=== PATIENT | female | born 1940 | race Caucasian/White ===

== ENCOUNTER 2016-10-24 07:47 | Day surgery (SDC) | payer MEDICARE, OTHER ==
[2012-10-23 10:48] VITALS: BMI 37.0
[2016-10-24] MEDS ORDERED: Lactated Ringer's 500 ML IV ONE (08:05)
[2016-10-24] MEDS ORDERED: Propofol 10 mg/ml Inj (20 ML) ONE (09:25)
[2016-10-24 10:07] VITALS: BP 129/54; PULSE 59; RESP 16; TEMP 97; O2SAT 99
== END 2016-10-24 10:16 | disposition home or self-care (01) ==
LOC: H.ENDO 07:47
PROVIDERS: ATTEND Internal Medicine Gastroenterology
DX: K29.51 Unspecified chronic gastritis with bleeding (principal); R10.13 Epigastric pain
CPT/HCPCS: 43239; 88305; J2001; J2704; J7120